=== PATIENT | female | born 1980 | race Caucasian/White ===

== ENCOUNTER 2017-09-02 19:59 | Emergency (ER) | payer MEDICAID ==
[~2017-09-02] VITALS: Ht 167.6 cm; Wt 63.5 kg
[2017-09-02 20:05] VITALS: BP_SYST 108
[2017-09-02] MEDS ORDERED: LIDOCAINE 1% 10 MG/ML, 20 ML MDV IJ ONE (21:00)
[2017-09-02] MEDS ORDERED: LIDOCAINE 1%, 20 ML MDV 20 ML ONE (21:00)
[2017-09-02] MEDS ORDERED: DIPH-TET-PERTUS Vaccine 0.5 ML VIAL (ADACEL) IM ONE (21:00)
[2017-09-02] MEDS ORDERED: BACITRACIN 1 GM OINT TP ONE (21:00)
[2017-09-02 21:15] VITALS: BP_SYST 108
== END 2017-09-02 21:15 | disposition home or self-care (01) ==
LOC: SED 19:59
DX: S51.812A Laceration without foreign body of left forearm, initial encounter (principal); W45.8XXA Other foreign body or object entering through skin, initial encounter; Y93.89 Activity, other specified; Y92.89 Other specified places as the place of occurrence of the external cause; Y99.2 Volunteer activity
CPT/HCPCS: 12002; 90471; 90715; 99283; J2001